=== PATIENT | male | born 2000 | race Caucasian/White ===

== ENCOUNTER 2018-11-21 07:57 | Emergency (ER) | payer OTHER ==
[~2018-11-21] VITALS: Ht 172.7 cm; Wt 76.2 kg
[2018-11-21 08:04] VITALS: BP_SYST 139
[2018-11-21] MEDS ORDERED: KETOROLAC TROMETHAMINE 60 MG/2 ML VIAL IM ONE (10:15)
[2018-11-21 11:03] VITALS: BP_SYST 129
== END 2018-11-21 11:03 | disposition home or self-care (01) ==
LOC: SED 07:57
DX: S01.511A Laceration without foreign body of lip, initial encounter (principal); W21.220A Struck by ice hockey puck, initial encounter; Y93.89 Activity, other specified; Y92.89 Other specified places as the place of occurrence of the external cause; Y99.8 Other external cause status
CPT/HCPCS: 12011; 70486; 96372; 99284; J1885

== ENCOUNTER 2018-11-22 10:19 | Emergency (ER) | payer OTHER ==
[~2018-11-22] VITALS: Ht 172.7 cm; Wt 72.6 kg
[2018-11-22 10:24] VITALS: BP_SYST 127
--- NOTE | 2018-11-22 10:40 | NUR ---
Patient to ER bed H1
--- NOTE | 2018-11-22 10:50 | NUR ---
PT PRESENTS TO ED C/O UNRESOLVING PAIN S/P PROCEDURE YESTERDAY. SUTURES ARE INTACT.NO S/S OF INFECTION NOTED.
--- NOTE | 2018-11-22 11:15 | NUR ---
ER at bedside examining patient.
[2018-11-22] MEDS: cefTRIAXone 1 GM VIAL IM ONE (11:47)
[2018-11-22] MEDS: MORPHINE 4 MG/ML INJ. SYRINGE IM ONE (11:48)
--- NOTE | 2018-11-22 12:00 | NUR ---
PT MEDCIATED TOLERATED WELL. WILL MONITOR FOR IMPROVEMENT
[2018-11-22 12:19] VITALS: BP_SYST 126
--- NOTE | 2018-11-22 12:19 | NUR ---
Patient given written and verbal discharge instructions and verbalizes understanding. ER MD discussed with patient the results and treatment provided. Patient in stable condition. ID arm band removed. Rx of NORCO given. Patient educated on pain management and to follow up with PMD. Pain Scale 2. Opportunity for questions provided and answered. Medication side effect fact sheet provided.
== END 2018-11-22 12:19 | disposition home or self-care (01) ==
LOC: SED 10:19
DX: S01.511D Laceration without foreign body of lip, subsequent encounter (principal); R03.0 Elevated blood-pressure reading, without diagnosis of hypertension; W21 Striking against or struck by sports equipment
CPT/HCPCS: 96372; 99283; J0696; J2270